=== PATIENT | male | born 1955 | race Two or more races ===

== ENCOUNTER 2021-05-11 10:48 | Inpatient (IN) | payer OTHER ==
[~2021-05-11 10:48] MED LIST: ENALAPRIL MALEAT5 MG PO; TAMS0.4C PO; TOPROL XL50 M1 PO
[2021-05-12] MEDS ORDERED: FINASTERIDE5 MG (08:16)
[2021-05-12] MEDS ORDERED: AMLODIPINE BESYL5 MG (08:16)
== END 2021-05-13 11:23 | disposition home or self-care (01) | DRG 713 ==
LOC: CIR.AMB 10:48 → O/R 17:13 → SURH 17:13
PROVIDERS: ADMIT Urology; ATTEND Urology
PROC: 0T778DZ Dilation of Left Ureter with Intraluminal Device, Via Natural or Artificial Opening Endoscopic (ICD-10-PCS; 2021-05-11)
PROC: 0TCB8ZZ Extirpation of Matter from Bladder, Via Natural or Artificial Opening Endoscopic (ICD-10-PCS; 2021-05-11)
PROC: 0VT08ZZ Resection of Prostate, Via Natural or Artificial Opening Endoscopic (ICD-10-PCS; principal; 2021-05-11 09:15)
DX: N40.1 Benign prostatic hyperplasia with lower urinary tract symptoms (principal); N20.2 Calculus of kidney with calculus of ureter; N20.1 Calculus of ureter